=== PATIENT | male | born 1965 | race Caucasian/White ===

== ENCOUNTER 2018-03-23 15:25 | Emergency (ER) | payer BC, OTHER ==
[2018-03-23 15:37] VITALS: PULSE 82; BMI 26.9
--- NOTE | 2018-03-23 15:51 | PDOC ---
History of Present Illness - General Chief Complaint: Chest Pain Stated Complaint: CHEST PAIN Time Seen by Provider: 03/23/18 15:50 - History of Present Illness Initial Comments: Taj Selby is a 52yo man with no known medical problems who presents reporting chest pain that has occurred intermittently since 2am. 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 The last was about an hour ago. The pain is sharp , non-radiating, and self-resolves in a few seconds. The longest episode lasted less than 30 seconds. There is no associated shortness of breath, lightheadedness, sweating, nausea, or vomiting. The pain has occurred randomly and is not associated with activity, eating, position, or movement. He denies any recent cough, shortness of breath, h/o asthma, or recent injury. Mr Selby does endorse doing a lot of pushups recently, which is not typical for him. He denies any drug/tobacco/alcohol use, previous surgeries, allergies, or any other health problems. He takes a daily multivitamin but does not use supplements. Past History - Past Medical History Allergies/Adverse Reactions: Allergies Allergy/AdvReac Type Severity Reaction Status Date / Time No Known Allergies Allergy Verified 03/23/18 15:34 Home Medications: Ambulatory Orders NK [No Known Home Medication] 04/27/14 COPD: No Other medical history: DENIES. - Immunization History Immunization Up to Date: Yes - Suicide/Smoking/Psychosocial Hx Smoking History: Never smoked Hx Alcohol Use: No Drug/Substance Use Hx: No Substance Use Type: None Review of Systems - Review of Systems Comments:: General: No fevers, no chills, no weight or appetite change, no malaise HEENT: No changes in vision, no changes in hearing, no congestion, no sore throat CV: No chest pain, no palpitations, no LE edema Pulm: No SOB, no cough, no wheezing GI: No nausea or vomiting, no change in bowel habits, no melena : No frequency, no urgency, no dysuria Musc: No back pain, no joint swelling, no recent injury Skin: No rash, no lesions, no erythema Endo: No excessive thirst, no heat/cold intolerance Heme: No unusual bruising or bleeding, no swollen glands Neuro: No syncope, no numbness/tingling, no focal weakness Vasc: No claudication Psych: No recent change in mood, no SI or HI *Physical Exam - Vital Signs Last Vital Signs Temp Pulse Resp BP Pulse Ox 98.3 F 82 19 152/90 97 03/23/18 15:34 03/23/18 15:34 03/23/18 15:34 03/23/18 15:34 03/23/18 15:34 - Physical Exam Comments: General: No acute distress. Appears anxious HEENT: PERRL, EOMI, MMM, voice normal, normal neck ROM, no LAD Cards: RRR, no murmur appreciated Pulm: Comfortable on room air, clear to auscultation bilaterally Abd: Soft, nontender, nondistended : No CVA tenderness Ext: Atraumatic. No LE edema. ROM intact. Strength 5/5 and equal bilaterally Vasc: Extremities WWP. Skin: Normal color, no rashes or lesions Neuro: A&Ox3, CN grossly intact, normal speech, motor/sensory grossly intact and symmetric Psych: Mood appropriate to situation Moderate Sedation - Procedure Monitoring Vital Signs: Procedure Monitoring Vital Signs Temperature 98.3 F 03/23/18 15:34 Pulse Rate 82 03/23/18 15:34 Respiratory Rate 19 03/23/18 15:34 Blood Pressure 152/90 03/23/18 15:34 O2 Sat by Pulse Oximetry (%) 97 03/23/18 15:34 Heart Score/ECG Review - History History: Slightly suspicious - Electrocardiogram EKG: Normal - Age Age: 45-65 - Risk Factors Based on the list above the patient has:: No risk factors known - Troponin Troponin: </= normal limit - Score Heart Score - Total: 1 ED Treatment Course - LABORATORY CBC & Chemistry Diagram: 03/23/18 16:06 03/23/18 16:06 Medical Decision Making - Medical Decision Making 03/23/18 16:05 Taj Selby is a 52yo man with no known medical conditions who presents with several episodes of sharp, self-resolving chest pain each lasting less than 30 seconds; he has had 5 episodes of the pain since 2am today. - Low suspicion for ACS as the pain is not exertional, he has no underlying medical conditions, and there are no associated symptoms. However, will r/o with with EKG, trop. CBC, chem, CXR to evaluate for abnormalities that could be causing pain - Also low suspicion for pneumonia as he reports no cough, fever, or respiratory symptoms. No history of injury suggesting rib contusion or fracture. - EKG previously competed in triage. NSR with HR 79, normal intervals, normal axis. No elevations, t-wave changes, or other abnormalities. Normal EKG. 03/23/18 16:54 - CXR reviewed, no abnormalities noted. Radiology read pending - Labs completed. No abnormalities noted - no leukocytosis, lytes WNL, trop negative. Hgb pending - Heart score 1 or 2 depending on whether hypertension on arrival is chronic. Low risk regardless; will recheck vitals. 03/23/18 18:08 - Hgb 17.3. Slightly high but not concerning, should f/u with primary care - Repeat BP still elevated at 167/90. Denies any symptoms including headache, lightheadedness, confusion, chest pain, or SOB. Reports feeling anxious and stressed about being at the hospital. No current record of hypertension, though last vitals recorded from several years ago. Discussed with Mr Selby. Will d/c home, pt understands that he needs to follow up with a primary care physician. Discussed with Dr Delcid. Haydee Bonds PGY1 *DC/Admit/Observation/Transfer Diagnosis at time of Disposition: Atypical chest pain - Discharge Dispostion Condition at time of disposition: Stable Decision to Admit order: No - Referrals Referrals: [facility] [facility] [place] [Provider Group] - Patient Instructions Printed Discharge Instructions: DI for Atypical Chest Pain Additional Instructions: Discharge Instructions: You were seen in the emergency department with chest pain. This was evaluated with an EKG, a chest xray, and blood tests. All of your results were normal. The sharp, brief chest pain you are describing is often called atypical chest pain and is not related to any heart problems; it may be due to stress or just occur occasionally at random. Home Care: - Try to limit your stress levels, especially if your pain seems to occur more with high levels of stress - You may use acetaminophen (Tylenol) 650-1000mg every 6-8 hours as needed for pain - Heat or ice packs might also help with your symptoms, especially if you feel they are due to recent increased exercise. Follow Up: - You reported not seeing a doctor regularly. You have been referred to the Internal Medicine resident clinic for follow up. Please schedule an appointment for a full physical exam and ED follow up within the next 1-2 weeks. You should also follow up regarding your blood pressure, which was noted to be high in the emergency department. This should be rechecked and followed. - Seek immediate medical care if you have any additional chest pain that is related to exercise, associated with shortness of breath, lightheadedness, nausea/vomiting, or sweating or if you have any medical emergency. - Post Discharge Activity
[2018-03-23 16:41] LABS: BASO % 0.3 % (0-2.0); LYMPH % 39.3 % (8-40); MEAN PLT VOLUME 8.6 fl (7.5-11.1); MONO % 7.6 % (3.8-10.2); NEUT % 51.8 % (42.8-82.8); PLATELET COUNT 211 K/MM3 (134-434); RBC 5.53 M/mm3 (4.00-5.60); WHITE BLOOD COUNT 6.9 K/mm3 (4.0-10.0)
[2018-03-23 16:50] LABS: ALBUMIN 4.1 g/dl (3.4-5.0); ALK PHOS 55 U/L (45-117); ANION GAP 9 MMOL/L (8-16); BILIRUBIN,TOTAL 0.4 mg/dL (0.2-1); BLOOD UREA NITROGEN 29 mg/dL (7-18); CALCIUM 8.7 mg/dL (8.5-10.1); CHLORIDE 104 mmol/L (98-107); CO2 26 mmol/L (21-32); CREATININE 1.1 mg/dL (0.55-1.3); GLUCOSE,RANDOM 89 mg/dL (74-106); POTASSIUM 3.9 mmol/L (3.5-5.1); SGOT/AST 27 U/L (15-37); SGPT/ALT 41 U/L (13-61); SODIUM 139 mmol/L (136-145)
--- NOTE | 2018-03-23 17:04 | PDOC ---
Attending Attestation - HPI HPI: 03/23/18 18:06 The patient is a 52-year-old male with no past medical history presents to the emergency department with intermittent chest pain since 2:00 am today. The patient reports at 2:00 am today he was woken up from sleep with a sudden onset of Mid-L chest pain, nonpruritic, nonradiating in nature. The patient reports the pain is sharp and feels like someone is cutting his chest. The patient reports since presentation, he has had 3 intermittent episodes of chest pain with each lasting for 30 seconds to 1 minute. The patient reports his last episode was at 3:00 pm today. The patient denies any known modifying factor that alleviates or exacerbated the pain. The patient reports he was doing some strenuous push ups last weeks, denies any other strenuous activity. Denies fever , chills, headache, SOB, abdominal pain, leg pain, urinary symptoms or changes in bowel habits. Denies sick contact, trauma or injury to the chest. Denies any cardiac medical conditions. FH: DM (brother) Allergies: NKDA Social history: No tobacco, alcohol or drug use reported. PCP: None. - Physicial Exam PE: 03/23/18 17:27 GENERAL: The patient is in no acute distress. Awake, alert and Oriented. LUNGS: Breath sounds equal, clear to auscultation bilaterally. No wheezes, and no crackles. HEART: Regular rate and rhythm, normal S1 and S2 without murmur, rub or gallop. ABDOMEN: Soft, nontender, normoactive bowel sounds. No guarding, no rebound. No masses palpable. EXTREMITIES: Normal range of motion, no edema. No clubbing or cyanosis. No erythema, or tenderness. MUSCULOSKELETAL: +No chest wall tenderness. Back non-tender to palpation, no CVA tenderness - Medical Decision Making 03/23/18 17:28 Documentation prepared by Kerline Maldonado, acting as medical care administrator for Sonia Delcid MD. <Kerline Maldonado - Last Filed: 03/23/18 18:06> - Resident Resident Name: Haydee Bonds - ED Attending Attestation I have performed the following: I have examined & evaluated the patient, The case was reviewed & discussed with the resident, I agree w/resident's findings & plan, Exceptions are as noted - Medical Decision Making 03/23/18 17:04 Twelve-lead EKG was performed and reviewed by me. There is normal sinus rhythm with a normal rate of 79 bpm. The axis is normal. The intervals are normal. There are no ST or T wave abnormalities. Impression: Normal twelve-lead EKG CXR - no effusion Pt is low risk, presents with chest pain which is intermittent since early this morning Currently has no chest Labs wnl Pt anxious to leave the ER I have explained that despite normal labs, he will need to follow up with a PMD for further testing Return to the ER for recurrent chest pain <Sonia Delcid - Last Filed: 03/27/18 10:07> Heart Score/ECG Review - History History: Slightly suspicious - Electrocardiogram EKG: Normal - Age Age: 45-65 - Risk Factors Risk Factors Heart Score: Yes Hx Hypertension Based on the list above the patient has:: 1-2 risk factors - Troponin Troponin: </= normal limit - Score Heart Score - Total: 2 <Sonia Delcid - Last Filed: 03/27/18 10:07>
[2018-03-23 17:35] LABS: HEMATOCRIT 48.6 % (35.4-49); HEMOGLOBIN 17.3 GM/dL (11.7-16.9); MCH 31.3 pg (25.7-33.7); MCHC 35.6 g/dl (32.0-35.9); MEAN CELL VOLUME 87.9 fl (80-96)
[2018-03-23 18:08] VITALS: BP 169/97; TEMP 98.6
--- NOTE | 2018-03-24 12:14 | EKG ---
Test Reason : Blood Pressure : / mmHG Vent. Rate : 079 BPM Atrial Rate : 079 BPM P-R Int : 164 ms QRS Dur : 090 ms QT Int : 386 ms P-R-T Axes : 056 024 056 degrees QTc Int : 442 ms POOR DATA QUALITY, INTERPRETATION MAY BE ADVERSELY AFFECTED NORMAL SINUS RHYTHM NORMAL ECG WHEN COMPARED WITH ECG OF 04-OCT-2004 09:31, NO SIGNIFICANT CHANGE WAS FOUND Confirmed by LILLY CASPER MD ([id number]) on 03/24/2018 12:13:56 PM Referred By: Confirmed By:LILLY CASPER MD
== END 2018-03-23 18:20 | disposition home or self-care (01) ==
LOC: JER 15:25
DX: R07.89 Other chest pain (principal)
CPT/HCPCS: 36415; 71046-TC-FY; 80053; 82550; 84484; 85025; 93005; 93010; 99281-25

== ENCOUNTER 2018-11-13 10:36 | Emergency (ER) | payer OTHER, BC ==
[2018-11-13 10:44] VITALS: BP 147/96; PULSE 77; TEMP 97.5; BMI 27.1
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
[2018-11-13] MEDS ORDERED: DIPHTH,PERTUSS(ACELL),TET 0.5 ML DISP.SYRIN IM ONE ×2 (11:42→11:44)
== END 2018-11-13 11:47 | disposition home or self-care (01) ==
LOC: JERFT 10:36
PROC: 0HQ1XZZ Repair Face Skin, External Approach (ICD-10-PCS; principal; 2018-11-13)
PROC: 3E0234Z Introduction of Serum, Toxoid and Vaccine into Muscle, Percutaneous Approach (ICD-10-PCS; 2018-11-13)
DX: S01.112A Laceration without foreign body of left eyelid and periocular area, initial encounter (principal); Y35.311A Legal intervention involving baton, law enforcement official injured, initial encounter; Y93.89 Activity, other specified; Y92.488 Other paved roadways as the place of occurrence of the external cause; Y99.0 Civilian activity done for income or pay
CPT/HCPCS: 90715; 99281-25